=== PATIENT | female | born 1955 | race Caucasian/White ===

== ENCOUNTER 2016-12-08 14:11 | Emergency (ER) | payer MEDICARE ==
[~2016-12-08] VITALS: Ht 160 cm; Wt 77.1 kg
[~2016-12-08 14:11] MED LIST: ACET-1010 PO; CARV25TA55 PO; DIA250 PO; DILT240C91 PO; TRAM50TA92 PO
[2016-12-08 14:16] VITALS: BP_SYST 155
[2016-12-08] MEDS ORDERED: KETOROLAC TROMETHAMINE 60 MG/2 ML VIAL IM ONE (15:00)
[2016-12-08 15:36] VITALS: BP_SYST 140
== END 2016-12-08 15:36 | disposition home or self-care (01) ==
LOC: SED 14:11
DX: S16.1XXA Strain of muscle, fascia and tendon at neck level, initial encounter (principal); F17.200 Nicotine dependence, unspecified, uncomplicated; I11.0 Hypertensive heart disease with heart failure; I50.9 Heart failure, unspecified; Z90.49 Acquired absence of other specified parts of digestive tract; Z96.641 Presence of right artificial hip joint; Z71.6 Tobacco abuse counseling; X58.XXXA Exposure to other specified factors, initial encounter; Y93.89 Activity, other specified; Y92.89 Other specified places as the place of occurrence of the external cause; Y99.8 Other external cause status
CPT/HCPCS: 72040; 96372; 99284; J1885

== ENCOUNTER 2017-03-24 21:00 | Emergency (ER) | payer MEDICARE ==
[~2017-03-24] VITALS: Ht 160 cm; Wt 77.1 kg
[2017-03-24 21:34] VITALS: BP_SYST 151
--- NOTE | 2017-03-24 21:38 | NUR ---
EKG DONE IN TRIAGE AT THIS TIME.
--- NOTE | 2017-03-24 22:39 | NUR ---
Patient to ER bed 3 to gown for evaluation. Side rails up. Report given to GRACIELA CEBALLOS.
--- NOTE | 2017-03-24 22:40 | NUR ---
Patient AAO x4, sitting in bed, c/o sudden onset difficulty breathing with bilateral lower extremity swelling. Patient states she does not want to "get admitted" and wants to go home, she is seeking treatment and will schedule an appointment with her PCP. Denies chest pain, denies N/V/D. No acute distress noted. Will continue to monitor.
--- NOTE | 2017-03-24 22:42 | NUR ---
CINDA Nobles at bedside examining patient.
[2017-03-24] MEDS ORDERED: CEPHALEXIN 500 MG CAPSULE PO ONE (23:00)
[2017-03-24] MEDS ORDERED: FUROSEMIDE 100 MG/10 ML VIAL IVP ONE (23:00)
[2017-03-24] MEDS ORDERED: SULFAMETHOXAZOLE/TRIMETHOPR DS 1 TABLET PO ONE (23:00)
--- NOTE | 2017-03-24 23:00 | NUR ---
# 22 gauge angiocath placed to L hand. Use of asceptic technique. Opsite placed over site. Blood return noted. Flushed with 10 cc of normal saline. No evidence of infiltration noted. Patient tolerated well.
[2017-03-24 23:16] LABS: BASOPHILS % (AUTO) 0.6 % (0.0-2.0); EOSINOPHILS # (AUTO) 0.4 K/uL (0.0-0.4); EOSINOPHILS % (AUTO) 5.6 % (0.0-4.0); HEMATOCRIT 35.3 % (36-48); HEMOGLOBIN 11.8 g/dL (12.0-16.0); LYMPHOCYTES # (AUTO) 1.3 K/uL (1.0-5.5); LYMPHOCYTES % (AUTO) 17.9 % (20.5-51.5); MEAN CORPUSCULAR HEMOGLOBIN 32 pg (27-31); MEAN CORPUSCULAR HGB CONC 33 % (32-36); MEAN CORPUSCULAR VOLUME 94 fL (79.0-98.0); MONOCYTES # (AUTO) 0.9 K/uL (0.0-1.0); MONOCYTES % (AUTO) 12.6 % (1.7-9.3); NEUTROPHILS # (AUTO) 4.8 K/uL (1.8-7.7); NEUTROPHILS % (AUTO) 63.3 % (40.0-70.0); PLATELET COUNT (AUTO) 291 K/uL (130-430); RED BLOOD CELL COUNT(AUTO) 3.74 MIL/uL (4.2-6.2); RED CELL DISTRIBUTION WIDTH 13.3 % (9.0-15.0); WHITE BLOOD COUNT (AUTO) 7.4 K/uL (4.8-10.8)
[2017-03-24 23:25] LABS: CALCIUM 9.4 mg/dL (8.4-11.0); CREATININE 0.48 mg/dL (0.55-1.30)
[2017-03-24 23:30] LABS: ALBUMIN 3.5 g/dL (3.4-4.8); TOTAL BILIRUBIN 0.2 mg/dL (0.0-1.0)
[2017-03-24] MEDS ORDERED: POTASSIUM CHLORIDE 20 MEQ/PKT PACKET PO ONE (23:45)
[2017-03-25 00:05] VITALS: BP_SYST 135
--- NOTE | 2017-03-25 00:05 | NUR ---
Patient given written and verbal discharge instructions and verbalizes understanding. ER MD discussed with patient the results and treatment provided. Patient in stable condition. ID arm band removed. IV catheter removed intact and dressing applied, no active bleeding. Rx of Keflex and Bactrim given. Patient educated on pain management and to follow up with PMD. Pain Scale 0/10. Opportunity for questions provided and answered.
== END 2017-03-25 00:05 | disposition home or self-care (01) ==
LOC: SED 21:00
DX: I11.0 Hypertensive heart disease with heart failure (principal); I50.9 Heart failure, unspecified; L03.116 Cellulitis of left lower limb; L03.115 Cellulitis of right lower limb; R06.02 Shortness of breath; R60.9 Edema, unspecified; F17.210 Nicotine dependence, cigarettes, uncomplicated; Z71.6 Tobacco abuse counseling; Z79.899 Other long term (current) drug therapy
CPT/HCPCS: 36415; 71045; 80053; 83880; 85025; 93005; 96374; 99285; J1940

== ENCOUNTER 2018-06-25 18:42 | Inpatient (IN) | payer BC, MEDICARE ==
[~2018-06-25] VITALS: Ht 160 cm; Wt 77.3 kg
[~2018-06-25 18:42] MED LIST changes: -ACET-1010 PO; +ACET-2634 PO
[2018-06-25] MEDS ORDERED: NACL 0.9% 1,000 ML IV ONE (18:51)
[2018-06-25 18:57] VITALS: BP_SYST 129
[2018-06-25] MEDS ORDERED: cefTRIAXone 1 GM IVPB PREMIX 50 ML IV ONE (19:15)
[2018-06-25 19:24] LABS: CALCIUM 8.6 mg/dL (8.4-11.0); CREATININE 0.8 mg/dL (0.55-1.30); POTASSIUM 3.2 mmol/L (3.5-5.1)
[2018-06-25 19:26] LABS: INR 1.2 (0.8-1.2); PROTHROMBIN TIME 12.4 SECS (9.5-12.5)
[2018-06-25 19:28] LABS: BILIRUBIN,URINE NEGATIVE (NEGATIVE); BLOOD, URINE 3+ (NEGATIVE); CLARITY/URINE CLEAR (CLEAR); COLOR,URINE YELLOW (YELLOW); GLUCOSE,URINE NEGATIVE (NEGATIVE); KETONES,URINE NEGATIVE (NEGATIVE); LEUKOCYTE ESTERASE ,URINE TRACE (NEGATIVE); NITRITE, URINE NEGATIVE (NEGATIVE); PH,URINE 5.5 (5.0-8.0); PROTEIN URINE 1+ (NEGATIVE); UROBILINOGEN,URINE 0.2 (0.2-1.0)
[2018-06-25 19:32] LABS: WHITE BLOOD COUNT (AUTO) 4.8 K/uL (4.8-10.8)
[2018-06-25 19:33] LABS: HEMATOCRIT 22.3 % (36-48); HEMOGLOBIN 6.4 g/dL (12.0-16.0); MEAN CORPUSCULAR HEMOGLOBIN 18 pg (27-31); MEAN CORPUSCULAR HGB CONC 29 % (32-36); MEAN CORPUSCULAR VOLUME 64 fL (79.0-98.0); PLATELET COUNT (AUTO) 365 K/uL (130-430); RED CELL DISTRIBUTION WIDTH 21.1 % (9.0-15.0)
[2018-06-25 19:38] LABS: ALBUMIN 3.2 g/dL (3.4-4.8); TOTAL BILIRUBIN 0.3 mg/dL (0.0-1.0)
[2018-06-25 19:42] LABS: BACTERIA,URINE FEW /HPF (None Seen); RBC,URINE >100 /HPF (0-3)
[2018-06-25 19:47] LABS: BAND % (MANUAL) 0 % (0-6); BASOPHILS % (MANUAL) 0 % (0-2); EOSINOPHILS % (MANUAL) 4 % (0-7); LYMPHOCYTES % (MANUAL) 30 % (20-46); MONOCYTES % (MANUAL) 10 % (0-11)
[2018-06-25 19:59] LABS: CKMB RELATIVE INDEX 1.9 (0.0-2.9); CREATINE KINASE MB 35.9 ng/mL (0-3.6)
[2018-06-25 22:00] VITALS: BP_SYST 111
[2018-06-25 22:12] VITALS: BP_SYST 111
[2018-06-25 22:58] LABS: BARBITURATE, URINE NEGATIVE (NEG <=200); BENZODIAZEPINE, URINE NEGATIVE (NEG <=150); CANNABINOID, URINE NEGATIVE (NEG <=50); COCAINE, URINE NEGATIVE (NEG <=150); METHAMPHETAMINES SCREEN,URINE POSITIVE (NEG <=500); OPIATE, URINE NEGATIVE (NEG <=100); PHENCYCLIDINE SCREEN,URINE NEGATIVE (NEG <=25); UR TRICYCLIC ANTIDEPRESSANTS NEGATIVE (NEG <=300); URINE AMPHETAMINE POSITIVE (NEG <=500); URINE METHADONE NEGATIVE (NEG <=200); URINE OXYCODONE SCREEN NEGATIVE (NEG <=100); URINE PROPOXYPHENE SCREEN NEGATIVE (NEG <=300)
[2018-06-25] MEDS ORDERED: DIPHENHYDRAMINE INJ 50 MG/ML VIAL IVP PRN (23:15)
[2018-06-25] MEDS ORDERED: POTASSIUM CHLORIDE 40 MEQ, LIDOCAINE JECT 2% PF 100 MG 50 MG in NS 250 ML IV ONE (23:15)
[2018-06-25] MEDS ORDERED: IPRATROPIUM/ALBUTEROL SULFATE 3 ML AMPUL.NEB (DUONEB) INH PRN (23:30)
[2018-06-25 23:47] VITALS: BP_SYST 111
[2018-06-26] VITALS: BP_SYST 101
[2018-06-26] MEDS ORDERED: AMPICILLIN SODIUM/SULBACTAM NA 3 GM VIAL ONE (01:53)
[2018-06-26] MEDS: AMPICILLIN SODIUM/SULBACTAM NA 3 GM in NS 100 ML IV SCH ×5 (01:54→23:11)
[2018-06-26] MEDS ORDERED: KCL 40 mEq in 100 mL (PREMIX) 100 ML IV ONE (01:56)
[2018-06-26] MEDS ORDERED: LIDOCAINE 2%, 20 ML MDV ONE (01:57)
[2018-06-26 08:00] VITALS: BP_SYST 104
[2018-06-26 09:34] LABS: ALANINE AMINOTRANSFERASE 135 U/L (12-78); ALBUMIN 2.9 g/dL (3.4-4.8); ANION GAP 6 (5-15); ASPARTATE AMINOTRANSFERASE 181 U/L (10-37); CHLORIDE 109 mmol/L (98-107); FREE T4 (FREE THYROXINE) 0.2 ng/dL (0.6-1.6); GLUCOSE 84 mg/dL (70-99); POTASSIUM 4.1 mmol/L (3.5-5.1); SODIUM SERUM 139 mmol/L (136-145); THYROID STIMULATING HORMONE 0.51 uIu/mL (0.34-4.82); TOTAL BILIRUBIN 0.4 mg/dL (0.0-1.0); UREA NITROGEN, BLOOD 16 mg/dL (8-21)
[2018-06-26 09:42] LABS: ALCOHOL, BLOOD < 3 mg/dL (<10); GFR AFRICAN AMERICAN 131 mL/min (>90)
[2018-06-26 09:43] LABS: TOTAL IRON BIND. CAPACITY 514 ug/dL (250-450)
[2018-06-26] MEDS ORDERED: SPIRONOLACTONE 25 MG TABLET (ALDACTONE) PO ONE (09:45)
[2018-06-26 10:00] LABS: RED BLOOD CELL COUNT(AUTO) 4.26 MIL/uL (4.2-6.2); WHITE BLOOD COUNT (AUTO) 6.1 K/uL (4.8-10.8)
[2018-06-26 10:01] LABS: HEMATOCRIT 29.2 % (36-48); HEMOGLOBIN 8.7 g/dL (12.0-16.0); MEAN CORPUSCULAR HEMOGLOBIN 20 pg (27-31); MEAN CORPUSCULAR HGB CONC 30 % (32-36); MEAN CORPUSCULAR VOLUME 69 fL (79.0-98.0); PLATELET COUNT (AUTO) 387 K/uL (130-430); RED CELL DISTRIBUTION WIDTH 25.1 % (9.0-15.0)
[2018-06-26 12:02] LABS: BASOPHILS % (MANUAL) 0 % (0-2); EOSINOPHILS % (MANUAL) 2 % (0-7); LYMPHOCYTES % (MANUAL) 9 % (20-46); MONOCYTES % (MANUAL) 4 % (0-11)
[2018-06-26 12:36] VITALS: BP_SYST 96
[2018-06-26 16:59] VITALS: BP_SYST 99
[2018-06-26] MEDS ORDERED: BISACODYL 5 MG TABLET.DR (DULCOLAX) PO ONE (17:00)
[2018-06-26] MEDS ORDERED: GOLYTELY / COLYTE SOLUTION 4 LITERS PO ONE (18:00)
[2018-06-26] MEDS: SOD FERRIC GLUC COMPLEX/SUC 125 MG in NS 100 ML IV SCH (18:30)
[2018-06-26] MEDS ORDERED: SPIRONOLACTONE 25 MG TABLET (ALDACTONE) PO SCH (21:00)
[2018-06-26 21:43] VITALS: BP_SYST 117
[2018-06-26] MEDS: CARVEDILOL 6.25 MG TABLET (COREG) PO SCH (21:49)
[2018-06-26] MEDS: SPIRONOLACTONE 25 MG TABLET (ALDACTONE) PO SCH (21:50)
[2018-06-27 03:17] VITALS: BP_SYST 100
[2018-06-27] MEDS: AMPICILLIN SODIUM/SULBACTAM NA 3 GM in NS 100 ML IV SCH ×4 (06:08→23:25)
[2018-06-27 06:52] LABS: BASOPHILS # (AUTO) 0.1 K/uL (0.0-0.2); EOSINOPHILS % (AUTO) 0.3 % (0.0-4.0); HEMATOCRIT 28.3 % (36-48); HEMOGLOBIN 8.3 g/dL (12.0-16.0); LYMPHOCYTES # (AUTO) 0.8 K/uL (1.0-5.5); LYMPHOCYTES % (AUTO) 17.9 % (20.5-51.5); MEAN CORPUSCULAR HEMOGLOBIN 20 pg (27-31); MEAN CORPUSCULAR HGB CONC 29 % (32-36); MEAN CORPUSCULAR VOLUME 70 fL (79.0-98.0); MONOCYTES # (AUTO) 0.6 K/uL (0.0-1.0); MONOCYTES % (AUTO) 14.3 % (1.7-9.3); NEUTROPHILS # (AUTO) 2.9 K/uL (1.8-7.7); PLATELET COUNT (AUTO) 311 K/uL (130-430); RED BLOOD CELL COUNT(AUTO) 4.06 MIL/uL (4.2-6.2); WHITE BLOOD COUNT (AUTO) 4.5 K/uL (4.8-10.8)
[2018-06-27 06:55] LABS: INR 1.3 (0.8-1.2); PROTHROMBIN TIME 13.3 SECS (9.5-12.5)
[2018-06-27 06:56] LABS: ALBUMIN 2.5 g/dL (3.4-4.8); CALCIUM 7.8 mg/dL (8.4-11.0); CREATININE 0.61 mg/dL (0.55-1.30); POTASSIUM 3.7 mmol/L (3.5-5.1); TOTAL BILIRUBIN 0.3 mg/dL (0.0-1.0)
[2018-06-27 07:51] LABS: NEUTROPHILS % (AUTO) 65.5 % (40.0-70.0)
[2018-06-27 08:29] VITALS: BP_SYST 118
[2018-06-27] MEDS: CARVEDILOL 6.25 MG TABLET (COREG) PO SCH ×2 (10:09→20:42)
[2018-06-27] MEDS: SPIRONOLACTONE 25 MG TABLET (ALDACTONE) PO SCH ×2 (10:10→20:42)
[2018-06-27] MEDS: FUROSEMIDE 40 MG TABLET PO SCH (10:10)
[2018-06-27] MEDS: SOD FERRIC GLUC COMPLEX/SUC 125 MG in NS 100 ML IV SCH (11:40)
[2018-06-27 11:59] VITALS: BP_SYST 116
[2018-06-27] MEDS ORDERED: BALSAM PERU/CASTOR OIL 60 GM OINT...G. TP ONE (13:00)
[2018-06-27 14:10] LABS: FERRITIN 10 ng/mL (15-150)
[2018-06-27] MEDS ORDERED: SILVER SULFADIAZINE 1%, 400 GM 400 GM CREAM.GM. TP ONE (16:00)
[2018-06-27 16:03] VITALS: BP_SYST 120
[2018-06-27 20:00] VITALS: BP_SYST 115
[2018-06-27] MEDS: SILVER SULFADIAZINE 1%, 400 GM 400 GM CREAM.GM. TP SCH (21:33)
[2018-06-27 23:42] VITALS: BP_SYST 131
[2018-06-28] MEDS: AMPICILLIN SODIUM/SULBACTAM NA 3 GM in NS 100 ML IV SCH ×4 (05:01→23:08)
[2018-06-28 07:30] VITALS: BP_SYST 109
[2018-06-28 07:41] VITALS: BP_SYST 109
[2018-06-28] MEDS ORDERED: LACTULOSE 20 GM/30 ML UDC PO SCH (09:00)
[2018-06-28] MEDS ORDERED: DIATR MEGLU/DIATRIZ SOD 30 ML SOLUTION PO ONE (09:26)
[2018-06-28] MEDS: SPIRONOLACTONE 25 MG TABLET (ALDACTONE) PO SCH ×2 (09:54→20:24)
[2018-06-28] MEDS: FUROSEMIDE 40 MG TABLET PO SCH (09:54)
[2018-06-28] MEDS: CARVEDILOL 6.25 MG TABLET (COREG) PO SCH ×2 (09:54→20:25)
[2018-06-28] MEDS ORDERED: IOHEXOL 100 ML IV ONE (11:29)
[2018-06-28 11:46] LABS: BASOPHILS # (AUTO) 0.1 K/uL (0.0-0.2); MEAN CORPUSCULAR HEMOGLOBIN 20 pg (27-31); MONOCYTES # (AUTO) 0.7 K/uL (0.0-1.0); WHITE BLOOD COUNT (AUTO) 5.3 K/uL (4.8-10.8)
[2018-06-28 11:49] LABS: EOSINOPHILS % (AUTO) 0.4 % (0.0-4.0); MEAN CORPUSCULAR HGB CONC 29 % (32-36); MEAN CORPUSCULAR VOLUME 70 fL (79.0-98.0); NEUTROPHILS # (AUTO) 3.1 K/uL (1.8-7.7)
[2018-06-28 11:54] LABS: BASOPHILS % (AUTO) 1.2 % (0.0-2.0); HEMATOCRIT 30.8 % (36-48); LYMPHOCYTES # (AUTO) 1.4 K/uL (1.0-5.5); LYMPHOCYTES % (AUTO) 26.8 % (20.5-51.5); MONOCYTES % (AUTO) 12.9 % (1.7-9.3); NEUTROPHILS % (AUTO) 58.7 % (40.0-70.0); PLATELET COUNT (AUTO) 349 K/uL (130-430); RED BLOOD CELL COUNT(AUTO) 4.42 MIL/uL (4.2-6.2); RED CELL DISTRIBUTION WIDTH 25.4 % (9.0-15.0)
[2018-06-28 12:00] VITALS: BP_SYST 104
[2018-06-28 12:13] LABS: CALCIUM 8.3 mg/dL (8.4-11.0); CHLORIDE 104 mmol/L (98-107); CREATININE 0.58 mg/dL (0.55-1.30); GLUCOSE 129 mg/dL (70-99); POTASSIUM 3.4 mmol/L (3.5-5.1); SODIUM SERUM 136 mmol/L (136-145); UREA NITROGEN, BLOOD 14 mg/dL (8-21)
[2018-06-28 12:15] LABS: ANION GAP < 3 (5-15); GFR AFRICAN AMERICAN 136 mL/min (>90)
[2018-06-28 12:17] LABS: ALANINE AMINOTRANSFERASE 112 U/L (12-78); ALBUMIN 2.6 g/dL (3.4-4.8); ASPARTATE AMINOTRANSFERASE 98 U/L (10-37); TOTAL BILIRUBIN 0.3 mg/dL (0.0-1.0)
[2018-06-28] MEDS ORDERED: POTASSIUM CHLORIDE 20 MEQ TAB.PRT.SR PO ONE (12:30)
[2018-06-28] MEDS: SOD FERRIC GLUC COMPLEX/SUC 125 MG in NS 100 ML IV SCH (14:23)
[2018-06-28] MEDS: BALSAM PERU/CASTOR OIL 60 GM OINT...G. TP SCH (14:23)
[2018-06-28] MEDS: SILVER SULFADIAZINE 1%, 400 GM 400 GM CREAM.GM. TP SCH ×2 (14:24→23:11)
[2018-06-28] MEDS: LACTULOSE 20 GM/30 ML UDC PO SCH ×2 (14:26→20:23)
[2018-06-28 15:37] VITALS: BP_SYST 111
[2018-06-29 00:56] VITALS: BP_SYST 107
[2018-06-29] MEDS: AMPICILLIN SODIUM/SULBACTAM NA 3 GM in NS 100 ML IV SCH ×2 (05:05→13:46)
[2018-06-29 06:59] LABS: ALANINE AMINOTRANSFERASE 112 U/L (12-78); ALBUMIN 2.5 g/dL (3.4-4.8); ASPARTATE AMINOTRANSFERASE 95 U/L (10-37); CALCIUM 8.4 mg/dL (8.4-11.0); CREATININE 0.57 mg/dL (0.55-1.30); GLUCOSE 98 mg/dL (70-99); SODIUM SERUM 138 mmol/L (136-145); TOTAL BILIRUBIN 0.3 mg/dL (0.0-1.0); UREA NITROGEN, BLOOD 11 mg/dL (8-21)
[2018-06-29 07:14] LABS: MEAN CORPUSCULAR HEMOGLOBIN 20 pg (27-31); MEAN CORPUSCULAR HGB CONC 29 % (32-36); MEAN CORPUSCULAR VOLUME 70 fL (79.0-98.0); PLATELET COUNT (AUTO) 338 K/uL (130-430); RED BLOOD CELL COUNT(AUTO) 4.43 MIL/uL (4.2-6.2); RED CELL DISTRIBUTION WIDTH 25.3 % (9.0-15.0); WHITE BLOOD COUNT (AUTO) 4.4 K/uL (4.8-10.8)
[2018-06-29 07:18] LABS: CHLORIDE 103 mmol/L (98-107); POTASSIUM 3.5 mmol/L (3.5-5.1)
[2018-06-29 07:20] LABS: ANION GAP < 3 (5-15); GFR AFRICAN AMERICAN 139 mL/min (>90)
[2018-06-29 08:00] VITALS: BP_SYST 126
[2018-06-29] MEDS: FUROSEMIDE 40 MG TABLET PO SCH (08:52)
[2018-06-29] MEDS: CARVEDILOL 6.25 MG TABLET (COREG) PO SCH (08:53)
[2018-06-29] MEDS: SPIRONOLACTONE 25 MG TABLET (ALDACTONE) PO SCH (08:53)
[2018-06-29] MEDS: LACTULOSE 20 GM/30 ML UDC PO SCH (08:53)
[2018-06-29 10:38] LABS: BASOPHILS % (MANUAL) 0 % (0-2); EOSINOPHILS % (MANUAL) 0 % (0-7); LYMPHOCYTES % (MANUAL) 28 % (20-46); MONOCYTES % (MANUAL) 12 % (0-11)
[2018-06-29] MEDS: SOD FERRIC GLUC COMPLEX/SUC 125 MG in NS 100 ML IV SCH (11:50)
[2018-06-29 11:56] VITALS: BP_SYST 134
[2018-06-29] MEDS ORDERED: CARV6.2554 PO (12:33)
[2018-06-29] MEDS ORDERED: SPIR25TA PO (12:33)
[2018-06-29] MEDS ORDERED: LACT10SO7 PO (12:39)
[2018-06-29] MEDS ORDERED: SILV20CR13 TP (12:40)
[2018-06-29 16:25] VITALS: BP_SYST 134
[2018-06-29] MEDS: BALSAM PERU/CASTOR OIL 60 GM OINT...G. TP SCH (16:43)
[2018-06-29] MEDS: SILVER SULFADIAZINE 1%, 400 GM 400 GM CREAM.GM. TP SCH (16:44)
[2018-06-29 16:57] VITALS: BP_SYST 123
== END 2018-06-29 17:00 | disposition home health service (06) | DRG 253 ==
LOC: SED 18:42 → STU 21:21 → SMU 06-27 15:52
PROVIDERS: ADMIT Internal Medicine; ATTEND Internal Medicine
PROC: 30233N1 Transfusion of Nonautologous Red Blood Cells into Peripheral Vein, Percutaneous Approach (ICD-10-PCS; principal; 2018-06-25)
DX: K92.2 Gastrointestinal hemorrhage, unspecified (principal); G93.41 Metabolic encephalopathy; K70.10 Alcoholic hepatitis without ascites; L03.115 Cellulitis of right lower limb; I11.0 Hypertensive heart disease with heart failure; I50.9 Heart failure, unspecified; G62.1 Alcoholic polyneuropathy; F15.10 Other stimulant abuse, uncomplicated; D50.9 Iron deficiency anemia, unspecified; B19.20 Unspecified viral hepatitis C without hepatic coma; K72.90 Hepatic failure, unspecified without coma; E87.6 Hypokalemia; K74.60 Unspecified cirrhosis of liver; F17.210 Nicotine dependence, cigarettes, uncomplicated; J44.9 Chronic obstructive pulmonary disease, unspecified; R29.6 Repeated falls; L03.116 Cellulitis of left lower limb; Z91.14 Patient's other noncompliance with medication regimen; R27.0 Ataxia, unspecified; Z90.49 Acquired absence of other specified parts of digestive tract; Z53.29 Procedure and treatment not carried out because of patient's decision for other reasons
CPT/HCPCS: 36415; 70450-TC; 71045; 76700-TC; 80053; 80307; 81000-TC; 82105; 82140-TC; 82150-TC; 82550-TC; 82553-TC; 82607; 82728; 83540-TC; 83550-TC; 83605; 83690-TC; 83880; 84439; 84443-TC; 84484; 85007; 85025; 85027; 85610-TC; 85730-TC; 86886; 86900; 86901; 86920; 87040-TC; 87086; 93005; 93306; 93923; 96365; 97110-GP; 97116-GP; 97530-GP; 99285; G0378; G0482; J0295; J0696; J2001; J2916; J3480; J7030; J7050; P9021; Q9964; Q9967

== ENCOUNTER 2021-05-09 11:37 | Emergency (ER) | payer BC, MEDICAID ==
[~2021-05-09] VITALS: Ht 157.5 cm; Wt 90.7 kg
[~2021-05-09 11:37] MED LIST changes: -ACET-2634 PO; -CARV25TA55 PO; +CARV6.2554 PO; -DIA250 PO; -DILT240C91 PO; +LACT10SO7 PO; +SILV20CR13 TP; +SPIR25TA PO; -TRAM50TA92 PO
--- NOTE | 2021-05-09 11:37 | NUR ---
Patient to ER bed 3 to gown for evaluation. Side rails up. Report given to TESSIE OWENS.
[2021-05-09 11:39] VITALS: BP_SYST 135
--- NOTE | 2021-05-09 11:40 | NUR ---
CINDA Greenwood at bedside examining patient.
--- NOTE | 2021-05-09 11:45 | NUR ---
PT PRESENTS TO ED C/O CHF EXACERBATION. PT REPORTS SYMPTOMS WORSENING NOT COMPLIANT W/MEDS
--- NOTE | 2021-05-09 12:25 | NUR ---
EKG DONE AT BEDSIDE
[2021-05-09 12:40] LABS: BASOPHILS % (AUTO) 1.1 % (0.0-2.0); EOSINOPHILS # (AUTO) 0.1 K/uL (0.0-0.4); EOSINOPHILS % (AUTO) 3.1 % (0.0-4.0); HEMOGLOBIN 12.7 g/dL (12.0-16.0); LYMPHOCYTES # (AUTO) 0.7 K/uL (1.0-5.5); LYMPHOCYTES % (AUTO) 16.3 % (20.5-51.5); MEAN CORPUSCULAR HEMOGLOBIN 30 pg (27-31); MEAN CORPUSCULAR HGB CONC 33 % (32-36); MEAN CORPUSCULAR VOLUME 92 fL (79.0-98.0); MONOCYTES # (AUTO) 0.5 K/uL (0.0-1.0); MONOCYTES % (AUTO) 11.3 % (1.7-9.3); NEUTROPHILS # (AUTO) 3.1 K/uL (1.8-7.7); NEUTROPHILS % (AUTO) 68.2 % (40.0-70.0); PLATELET COUNT (AUTO) 239 K/uL (130-430); RED BLOOD CELL COUNT(AUTO) 4.24 MIL/uL (4.2-6.2); WHITE BLOOD COUNT (AUTO) 4.6 K/uL (4.8-10.8)
[2021-05-09] MEDS ORDERED: FUROSEMIDE 40 MG/4 ML VIAL IVP ONE (12:45)
[2021-05-09] MEDS ORDERED: ALBUTEROL SULFATE 0.083% 2.5 MG/3 ML VIAL.NEB INH ONE (12:45)
[2021-05-09 13:04] LABS: CALCIUM 8.4 mg/dL (8.4-11.0); CREATININE 0.55 mg/dL (0.55-1.30); POTASSIUM 3.4 mmol/L (3.5-5.1)
--- NOTE | 2021-05-09 13:08 | NUR ---
PATIENT PRESENTS TO ER WITH SOB HISTORY OF CHF OFF MEDICATIONS FOR 8 MONTHS, LASIX IVP GIVEN WILL CONTINUE TO MONITOR.
[2021-05-09 13:13] LABS: ALBUMIN 3.5 g/dL (3.4-4.8); TOTAL BILIRUBIN 0.3 mg/dL (0.0-1.0)
--- NOTE | 2021-05-09 13:59 | NUR ---
PT AMBULATING TO RESTROOM STEADY GAIT
[2021-05-09] MEDS ORDERED: IBUPROFEN 600 MG TABLET PO ONE (14:30)
[2021-05-09] MEDS ORDERED: CARV6.2554 PO (15:11)
[2021-05-09] MEDS ORDERED: PRED20TA PO (15:11)
[2021-05-09] MEDS ORDERED: ALBMDI INH (15:11)
[2021-05-09] MEDS ORDERED: SPIR25TA PO (15:11)
[2021-05-09] MEDS ORDERED: METHYLPREDNISOLONE SOD SUCC 40 MG/ML VIAL IVP ONE (15:15)
[2021-05-09 15:28] VITALS: BP_SYST 160
--- NOTE | 2021-05-09 15:30 | NUR ---
Patient given written and verbal discharge instructions and verbalizes understanding. ER MD discussed with patient the results and treatment provided. Patient in stable condition. ID arm band removed. IV catheter removed intact and dressing applied, no active bleeding. Rx of given. Patient educated on pain management and to follow up with PMD. Pain Scale . Opportunity for questions provided and answered. Medication side effect fact sheet provided.
== END 2021-05-09 15:28 | disposition home or self-care (01) ==
LOC: SED 11:37
DX: I11.0 Hypertensive heart disease with heart failure (principal); I50.9 Heart failure, unspecified; J44.1 Chronic obstructive pulmonary disease with (acute) exacerbation; F17.210 Nicotine dependence, cigarettes, uncomplicated; Z79.899 Other long term (current) drug therapy
CPT/HCPCS: 36415; 71045; 80053; 83880; 84484; 85025; 93005; 94640; 96374; 96375; 99285; J1030; J1940; J7613